=== PATIENT | female | born 1975 ===

== ENCOUNTER 2016-11-12 08:02 | Outpatient (CLI) | payer OTHER ==
[2016-11-12 08:55] LABS: BASOPHILS % 0.8 (0.0-1.5); EOSINOPHILS % 2.9 % (0.0-6.8); MEAN CORPUSCULAR HEMOGLOBIN 34.5 pg (28.0-34.0); MEAN CORPUSCULAR VOLUME 104.9 fl (80.0-100.0); MONOCYTES % 3.8 % (0.0-11.0); NEUTROPHILS # 1.9 # k/uL (1.4-7.7)
--- NOTE | 2016-11-12 10:05 | Diagnostic Imaging Report ---
ROBBIE CRAWFORD [facility] [id number] [address] [facility] [address] [place] [address]. [id number] Report Submission Date: Nov 12, 2016 9:32:34 AM CDT Patient Study Name: CHARLENE GRACE Date: Nov 12, 2016 8:06:43 AM CDT Modality Type: CR Gender: F Description: LOWER EXTREMITY : 79 Institution: [facility] Physician: ROBBIE CRAWFORD Examination: Plain film ankle History: Ankle discomfort. Findings: 3 views of the ankle demonstrates normal cortical margins. No fracture or dislocation. Talar dome is intact. No soft tissue swelling. No joint effusion. First digit fixation pins. Impression: No acute osseous process. Electronically signed on Nov 12, 2016 9:32:34 AM CDT by: Stanislaw PATEL
[2016-11-12 21:50] LABS: TOTAL PROTEIN 6.8 g/dL (6.0-8.5)
== END 2016-11-12 08:03 ==
LOC: LAB 08:02
PROVIDERS: ATTEND Physician Assistant
DX: M25.472 Effusion, left ankle (principal); Z00.00 Encounter for general adult medical examination without abnormal findings
CPT/HCPCS: 36415; 73610; 80053; 84443; 85025